=== PATIENT | male | born 1955 | race Caucasian/White ===

== ENCOUNTER 2019-12-26 16:39 | Emergency (ER) | payer MEDICARE, OTHER ==
[~2019-12-26] VITALS: Ht 167.6 cm; Wt 108.0 kg
--- OUTSIDE RECORDS SUMMARY | 2019-12-26 16:42 | XMS ---
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 EEnrique VISIT COUNT (12 MO.) 1 SHRUTHI Bro TOTAL 1 NOTE: Visits indicate total known visits. ED/UCC VISIT TRACKING (12 MO.) 12/26/2019 16:40 SHRUTHI Bradley TYPE: Emergency COMPLAINT: - FALL INPATIENT VISIT TRACKING (12 MO.) 11/16/2019 13:55 Meagan LEHMAN TYPE: Rehab COMPLAINT: - RIGHT TOTAL KNEE, PARKINSONS 11/10/2019 11:17 Meagan LEHMAN TYPE: Medical Surgical COMPLAINT: - UNILATERAL PRIMARY OSTEOARTHRITIS, RIGHT [email or web address]
[2019-12-26] MEDS ORDERED: CARBIDOPA-LEVO1 EAC1 PO (16:59)
[2019-12-26] MEDS ORDERED: TRIAMTERENE-HC1 EAC1 PO (17:00)
[2019-12-26] MEDS ORDERED: POTASSIUM CHLO10 ME2 PO (17:00)
[2019-12-26] MEDS ORDERED: TAMSULOSIN HCL0.4 MG PO (17:01)
[2019-12-26] MEDS ORDERED: FUROSEMIDE80 MG PO (17:01)
[2019-12-26] MEDS ORDERED: OMEPRAZOLE20 MG PO (17:01)
== END 2019-12-26 19:05 | disposition home or self-care (01) ==
LOC: ED 16:39
DX: S46.911A Strain of unspecified muscle, fascia and tendon at shoulder and upper arm level, right arm, initial encounter (principal); S50.311A Abrasion of right elbow, initial encounter; Z87.891 Personal history of nicotine dependence; Z79.899 Other long term (current) drug therapy; W18.30XA Fall on same level, unspecified, initial encounter
CPT/HCPCS: 73030; 90471; 90715; 99283-25

== ENCOUNTER 2022-01-01 17:40 | Emergency (ER) | payer MEDICARE, BC ==
[~2022-01-01] VITALS: Ht 167.6 cm; Wt 104.3 kg
[~2022-01-01 17:40] MED LIST: CARBIDOPA-LEVO1 EAC1 PO; FUROSEMIDE80 MG PO; OMEPRAZOLE20 MG PO; POTASSIUM CHLO10 ME2 PO; TAMSULOSIN HCL0.4 MG PO; TRIAMTERENE-HC1 EAC1 PO
== END 2022-01-01 20:05 | disposition home or self-care (01) ==
LOC: ED 17:40
DX: S06.0X0A Concussion without loss of consciousness, initial encounter (principal); W17.89XA Other fall from one level to another, initial encounter; I10 Essential (primary) hypertension; G20 Parkinson's disease; Z87.891 Personal history of nicotine dependence; Z88.5 Allergy status to narcotic agent; Z88.8 Allergy status to other drugs, medicaments and biological substances; Z79.899 Other long term (current) drug therapy
CPT/HCPCS: 36415; 70450; 80048; 81001; 85025; 99285-25; J7030

== ENCOUNTER 2022-01-02 13:17 | Inpatient (IN) | payer MEDICARE, BC ==
[~2022-01-02] VITALS: Ht 167.6 cm; Wt 108.2 kg
--- NOTE | ~2022-01-02 | EKG ---
[facility] [address] [place], [place] [address] Draft EKG completed, results pending confirmation PATIENT NAME: SANTOVIRGIL MEEKS Electrocardiogram DATE OF : 53 PHYSICIAN: PRELIMINARY REPORT #: [id number] REPORT IS CONFIDENTIAL AND NOT TO BE RELEASED WITHOUT AUTHORIZATION
--- OUTSIDE RECORDS SUMMARY | 2022-01-02 13:24 | XMS ---
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 E.Fariha VISIT COUNT (12 MO.) 2 [facility] TOTAL 2 NOTE: Visits indicate total known visits. ED/UCC VISIT TRACKING (12 MO.) 01/02/2022 13:17 SHRUTHI Benjamin [place] TYPE: Emergency COMPLAINT: - WEAKNESS 01/01/2022 17:40 SHRUTHI Benjamin [place] TYPE: Emergency COMPLAINT: - WEAKNESS INPATIENT VISIT TRACKING (12 MO.) No inpatient visits to display in this time frame [email or web address]
[2022-01-03] MEDS ORDERED: CARBIDOPA-LEVO1 EAC2 PO (08:38)
[2022-01-03] MEDS ORDERED: OXYBUTYNIN CHLOR5 M1 PO (08:38)
--- NOTE | 2022-01-03 13:16 | EKG ---
[facility] [address] [place] [address] Signed Poor data quality, interpretation may be adversely affected Normal sinus rhythm ST \T\ T wave abnormality, consider inferior ischemia Abnormal ECG When compared with ECG of 02-JAN-2022 13:40, (Unconfirmed) Previous ECG has undetermined rhythm, needs review QRS duration has decreased Criteria for Septal infarct are no longer present ST less elevated in Inferior leads Non-specific change in ST segment in Anterior leads ST no longer elevated in Lateral leads Confirmed by JAKUB PITTS MD ([id number]) on 01/03/2022 1:15:50 PM Electronically Signed By: JAKUB PITTS MD 01/03/22 1316 PATIENT NAME: VIRGIL BLANCHARD Electrocardiogram DATE OF : 53 PHYSICIAN: JAKUB PITTS MD REPORT #: [id number] REPORT IS CONFIDENTIAL AND NOT TO BE RELEASED WITHOUT AUTHORIZATION
[2022-01-13] MEDS ORDERED: ACETAMINOPHEN500 MG PO (09:50)
[2022-01-13] MEDS ORDERED: POTASSIUM CHLO10 ME2 PO (09:52)
[2022-01-13] MEDS ORDERED: FUROSEMIDE80 MG PO (09:52)
== END 2022-01-13 13:25 | disposition home or self-care (01) | DRG 558 ==
LOC: ED 13:17 → MS 13:18
PROVIDERS: ADMIT Internal Medicine; ATTEND Internal Medicine
DX: M62.82 Rhabdomyolysis (principal); E86.0 Dehydration; E87.6 Hypokalemia; T50.2X5A Adverse effect of carbonic-anhydrase inhibitors, benzothiadiazides and other diuretics, initial encounter; G20 Parkinson's disease; Z20.822 Contact with and (suspected) exposure to COVID-19; K21.9 Gastro-esophageal reflux disease without esophagitis; N40.0 Benign prostatic hyperplasia without lower urinary tract symptoms; K58.9 Irritable bowel syndrome, unspecified; K52.9 Noninfective gastroenteritis and colitis, unspecified; G44.309 Post-traumatic headache, unspecified, not intractable; R63.4 Abnormal weight loss; I87.2 Venous insufficiency (chronic) (peripheral); Z88.5 Allergy status to narcotic agent; Z88.8 Allergy status to other drugs, medicaments and biological substances; Z87.891 Personal history of nicotine dependence; Z79.899 Other long term (current) drug therapy
CPT/HCPCS: 36415; 71045; 72100; 74177; 80048; 80053; 81001; 82306; 82553; 83550; 83630; 83735; 83880; 84443; 84484; 85025; 85651; 86140; 93005; 93010; 97110; 97116; 97162; 97165; 97530; 97535; 99285-25; A9270; C9803; J3475; J3480; J7030; J7120; J7121; Q9967; U0003

== ENCOUNTER 2022-06-28 18:51 | Emergency (ER) | payer MEDICARE, BC ==
[~2022-06-28] VITALS: Ht 167.6 cm; Wt 10805.5 kg
[~2022-06-28 18:51] MED LIST changes: +ACETAMINOPHEN500 MG PO; +CARBIDOPA-LEVO1 EAC2 PO; +OXYBUTYNIN CHLOR5 M1 PO
[2022-06-28] MEDS ORDERED: TRIAMTERENE-HC1 EAC1 PO (19:07)
--- NOTE | 2022-06-29 17:30 | EKG ---
[facility] [address] [facility] [place] [address] Signed Poor data quality, interpretation may be adversely affected Undetermined rhythm Left axis deviation Low voltage QRS Inferior-posterior infarct , age undetermined Cannot rule out Anterior infarct , age undetermined Abnormal ECG No previous ECGs available Confirmed by Carl Perez MD () on 06/29/2022 5:30:12 PM Electronically Signed By: CARL PEREZ MD 06/29/22 1730 PATIENT NAME: VIRGIL BLANCHARD Electrocardiogram DATE OF : 53 PHYSICIAN: CARL PEREZ MD REPORT #: [id number] REPORT IS CONFIDENTIAL AND NOT TO BE RELEASED WITHOUT AUTHORIZATION
== END 2022-06-28 21:34 | disposition home or self-care (01) ==
LOC: ED 18:51
DX: R07.89 Other chest pain (principal); G20 Parkinson's disease; I10 Essential (primary) hypertension; Z87.891 Personal history of nicotine dependence; Z88.5 Allergy status to narcotic agent; Z88.8 Allergy status to other drugs, medicaments and biological substances; Z88.6 Allergy status to analgesic agent; Z79.899 Other long term (current) drug therapy
CPT/HCPCS: 36415; 71045; 80053; 83735; 84484; 85025; 99285-25; A9270